=== PATIENT | male | born 1960 | race Caucasian/White ===

== ENCOUNTER → 2016-07-21 | Outpatient (CLI) | payer BC ==
[~2016-07-21] MED LIST: ALBUAER2 INH; CALCTAB5 PO; DIAZ-165 PO; ERGO500037 PO; LEVO-14 PO; MONT1TAB3 PO; ONDA4TAB46 PO; OXYC1TAB3 PO; OXYM1TAB25 PO; SIMV10TA5 PO; SYMIN160 INH; TADA5TAB11 PO; ZOLP10TA6 PO; allergy injections; celebrex PO
== END | disposition home or self-care (01) ==
LOC: C.MAMM 13:05
PROVIDERS: ATTEND Family Medicine
DX: M85.80 Other specified disorders of bone density and structure, unspecified site (principal)

== ENCOUNTER → 2016-10-15 | Outpatient (CLI) | payer BC ==
[~2016-10-15] MED LIST changes: -DIAZ-165 PO
--- NOTE | 2016-10-15 10:34 | DIAGNOSTIC IMAGING REPORT ---
LEFT SHOULDER 3 VIEWS HISTORY: LEFT SHOULDER PAIN COMPARISON: None. FINDINGS: There is no fracture or dislocation. Small amount of calcification surrounding the AC joint likely due to long-standing degenerative change or old trauma. The left clavicle appears intact. Moderate cartilage space narrowing and marginal osteophytes at the glenohumeral joint consistent with moderate osteoarthritis. No radiopaque foreign bodies. IMPRESSION: No fracture or dislocation within the left shoulder. Degenerative changes as described above. Electronically signed by: Dean Decker M.D. 10/15/2016 10:32 AM Dictated Date/Time: 10/15/2016 10:31 AM
== END | disposition home or self-care (01) ==
LOC: C.RDSM 10:18
PROVIDERS: ATTEND Physician Assistant
DX: M25.512 Pain in left shoulder (principal)

== ENCOUNTER → 2016-11-06 | Outpatient (CLI) | payer BC ==
--- NOTE | 2016-11-06 09:52 | DIAGNOSTIC IMAGING REPORT ---
CHEST CT WITHOUT CONTRAST CT DOSE: 319.22 mGy.cm HISTORY: R91.1 Solitary pulmonary nodule. 6 month follow-[id number] TECHNIQUE: Multiaxial CT images of the chest were performed without contrast. COMPARISON: Chest CT 04/19/2015. Thoracic spine CT 03/23/2016. Chest CT 05/26/2010. FINDINGS: Trace mucoid material within the upper trachea. Otherwise, the central airways are patent. Mild emphysema with a few small apical blebs. No pleural effusions. No pneumothorax. Subtle 2 cm groundglass density within the right upper lobe on image 116. A 5 mm nodule within the right lower lobe on image 190. This has been stable compared to a [address] Therefore, this is considered to be benign. Cervical spinal fusion hardware is partially visualized. No acute fractures. Old, healed left 10th rib fracture. No mediastinal or hilar lymphadenopathy. The heart is normal in size. A few capsular calcifications within the liver. The visualized spleen and adrenal glands are unremarkable. A 13 mm hypodense lesion within the left kidney. This is incompletely characterize on this noncontrast study but favors a cyst. IMPRESSION: 1. A 5 mm nodule within the right lower lobe which demonstrates greater than 6 years of stability. Therefore, this is considered to be benign. 2. Subtle 2 cm groundglass density with the right upper lobe. This may represent a small focus of resolving inflammatory/infectious change. Six-month chest CT follow up is recommended to ensure complete resolution. 3. Emphysema. Electronically signed by: Dean Decker M.D. 11/06/2016 9:50 AM Dictated Date/Time: 11/06/2016 9:42 AM
== END | disposition home or self-care (01) ==
LOC: C.CTS 09:21
PROVIDERS: ATTEND Family Medicine
DX: R91.1 Solitary pulmonary nodule (principal); R91.8 Other nonspecific abnormal finding of lung field; J43.9 Emphysema, unspecified

== ENCOUNTER → 2017-01-19 | Outpatient (CLI) | payer BC ==
--- NOTE | 2017-01-19 10:52 | DIAGNOSTIC IMAGING REPORT ---
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 COMPARISON STUDY: 01/27/2016 FINDINGS: Unchanged small aneurysm of the proximal left middle cerebral artery. Dimensions remain at 1.5 mm. No evidence for new interval or progressive process. All remaining structures the anterior middle and posterior cerebral circulation are unremarkable. Vertebral basilar system is unremarkable. IMPRESSION: 1. 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 No evidence for new interval or progressive process. 3. All remaining intracranial vascular components are unremarkable. Electronically signed by: Darshan Dixon M.D. 01/19/2017 10:51 AM Dictated Date/Time: 01/19/2017 10:49 AM
== END | disposition home or self-care (01) ==
LOC: C.MRIBC 09:07
PROVIDERS: ATTEND Psychiatry & Neurology Neurology
DX: I67.1 Cerebral aneurysm, nonruptured (principal)

== ENCOUNTER → 2017-02-08 | Outpatient (CLI) | payer BC | END | disposition home or self-care (01) | LOC: C.RDSM 15:58 | PROVIDERS: ATTEND Physical Medicine & Rehabilitation Sports Medicine | DX: M25.532 Pain in left wrist (principal) ==

== ENCOUNTER → 2017-04-20 | Outpatient (CLI) | payer BC ==
--- NOTE | 2017-04-20 10:29 | DIAGNOSTIC IMAGING REPORT ---
CT OF THE CHEST WITHOUT IV CONTRAST CLINICAL HISTORY: Follow-up pulmonary nodule. COMPARISON STUDY: Chest CTs October 03, 2009 and November 06, 2016. CT DOSE: 265.09 mGycm TECHNIQUE: Axial images of the chest were obtained without IV contrast. Images were reviewed in the axial, sagittal, and coronal planes. IV contrast was not administered for this examination. A dose lowering technique was utilized adhering to the principles of ALARA. FINDINGS: No enlarged axillary, mediastinal or hilar lymph nodes are present. The size of the heart is normal. There is no pericardial effusion. Central airways are patent. No pneumothorax or pleural effusion is noted. A 5 mm right lower lobe pulmonary nodule shown on image 195 of [address] of May 26, 2010. This is benign given stability. The subtle groundglass opacity within the right upper lobe shown on exam of November 06, 2016 has resolved. There are no new pulmonary nodules. There is no consolidation to suggest pneumonia. Bony thorax is unremarkable. A water attenuation left renal lesion is partially imaged on since exam. This likely reflects a cyst and is unchanged. Capsular calcifications of the liver are chronic. IMPRESSION: 1. No suspicious pulmonary nodules. 2. Resolution of the 2 cm groundglass opacity within the right upper lobe since exam of November 06, 2016. This reflected an infectious process. 3. No change in a 5 mm right lower lobe nodule which is benign given stability from earlier exams. Electronically signed by: Israel Eduardo M.D. 04/20/2017 10:28 AM Dictated Date/Time: 04/20/2017 10:20 AM
== END | disposition home or self-care (01) ==
LOC: C.CTS 10:02
PROVIDERS: ATTEND Physician Assistant Medical
DX: R91.1 Solitary pulmonary nodule (principal)